=== PATIENT | female | born 1955 | race Hispanic/Latino ===

== ENCOUNTER 2017-01-25 09:02 | Outpatient (CLI) | payer BC ==
--- NOTE | 2017-01-25 11:03 | Mammography Report ---
Bilateral digital screening mammogram with CAD. Comparison study is dated January 26, 2016. Findings: On the MLO projection of the right breast there is an ill-defined subcentimeter parenchymal asymmetry above the nipple line. Otherwise, the overall clinical pattern is stable with no additional suspicious findings. A left biopsy clip is noted. There are no suspicious microcalcifications. Impression: Small right parenchymal asymmetry. BI-RADS code: Zero. Recommendation: Spot compression, 90 degree view, and ultrasound if needed.
== END 2017-01-25 09:03 | disposition home or self-care (01) ==
LOC: MAMMO 09:02
DX: Z12.31 Encounter for screening mammogram for malignant neoplasm of breast (principal)
CPT/HCPCS: 77067; G0202

== ENCOUNTER 2017-01-28 07:27 | Outpatient (CLI) | payer BC ==
--- NOTE | 2017-01-28 07:58 | Mammography Report ---
Right mammogram: Additional lateral compression imaging is performed based on questionable new asymmetry on recent screening exam of January 28. The asymmetry identified at that time is no longer noted. No additional changes. Impression: Stable right mammogram. Recommendation: Annual mammogram followup. BI-RADS CATEGORY: 1 = Negative ACR BI-RADS MAMMOGRAPHIC CODES: 0 = Needs additional imaging evaluation; 1 = Negative; 2 = Benign; 3 = Probably benign; 4 = Suspicious; 5 = Malignant; 6 = Known biopsy-proven malignancy COMMENT: 1. Dense breast tissue, i.e., adenosis, fibrocystic changes, etc., may obscure an underlying neoplasm. 2. Approximately 10% of cancers are not detected with mammography. 3. A negative mammography report should not delay biopsy if a clinically suspicious mass is present.
== END 2017-01-28 07:28 | disposition home or self-care (01) ==
LOC: MAMMO 07:27
DX: R92.8 Other abnormal and inconclusive findings on diagnostic imaging of breast (principal)
CPT/HCPCS: G0206-RT

== ENCOUNTER 2017-03-17 08:31 | Outpatient (CLI) | payer BC ==
[2017-03-17 09:00] LABS: Basophils % (Auto) 0.6 % (0.0-1.8); Eosinophils % (Auto) 2.6 % (0.0-4.3); Hematocrit 43.1 % (30.3-42.9); Hemoglobin 14.6 gm/dl (10.1-14.3); Mean Corpuscular HGB Conc 34 % (30-34); Mean Corpuscular Hemoglobin 30 pg (28-32); Mean Corpuscular Volume 89 fl (79-97); Platelet Count 177 K/mm3 (140-440); Red Blood Count 4.86 M/mm3 (3.65-5.03); Red Cell Distribution Width 13.5 % (13.2-15.2); White Blood Count 8.7 K/mm3 (4.5-11.0)
[2017-03-17 09:21] LABS: Alanine Aminotransferase 16 units/L (7-56); Albumin/Globulin Ratio 1.5 %; Alkaline Phosphatase 72 units/L (35-129); Anion Gap 15 mmol/L; BUN/Creatinine Ratio 18.33; Blood Urea Nitrogen 11 mg/dL (7-17); Carbon Dioxide 25 mmol/L (22-30); Chloride 104.4 mmol/L (98-107); Cholesterol 211 mg/dL (50-199); Glucose 86 mg/dL (65-100); HDL Cholesterol 53 mg/dL (40-59); LDL Cholesterol,Direct 139 mg/dL (50-130); Potassium 3.8 mmol/L (3.6-5.0); Sodium 141 mmol/L (137-145); Total Protein 6.6 g/dL (6.3-8.2); Triglycerides 98 mg/dL (2-149)
[2017-03-19 07:43] LABS: Vitamin D, 25-OH, Total 43 ng/mL (30-100)
== END 2017-03-17 08:32 | disposition home or self-care (01) ==
LOC: LAB 08:31
PROVIDERS: ATTEND Family Medicine
DX: Z13.220 Encounter for screening for lipoid disorders (principal); E01.0 Iodine-deficiency related diffuse (endemic) goiter; E55.9 Vitamin D deficiency, unspecified; D50.8 Other iron deficiency anemias; Z79.899 Other long term (current) drug therapy
CPT/HCPCS: 36415; 80053; 80061; 82306; 84439; 84443; 85025

== ENCOUNTER 2018-03-03 07:22 | Outpatient (CLI) | payer BC ==
[2018-03-03 07:55] LABS: Basophils % (Auto) 0.6 % (0.0-1.8); Eosinophils # (Auto) 0.2 K/mm3 (0.0-0.4); Eosinophils % (Auto) 2.7 % (0.0-4.3); Hematocrit 44.2 % (30.3-42.9); Hemoglobin 14.9 gm/dl (10.1-14.3); Lymphocytes # (Auto) 2.6 K/mm3 (1.2-5.4); Lymphocytes % (Auto) 39.4 % (13.4-35.0); Mean Corpuscular HGB Conc 34 % (30-34); Mean Corpuscular Hemoglobin 30 pg (28-32); Mean Corpuscular Volume 89 fl (79-97); Monocytes # (Auto) 0.3 K/mm3 (0.0-0.8); Monocytes % (Auto) 4.8 % (0.0-7.3); Platelet Count 195 K/mm3 (140-440); Red Blood Count 4.94 M/mm3 (3.65-5.03); Red Cell Distribution Width 13.6 % (13.2-15.2)
[2018-03-03 08:07] LABS: Alanine Aminotransferase 17 units/L (7-56); Albumin 4.2 g/dL (3.9-5); BUN/Creatinine Ratio 24; Blood Urea Nitrogen 12 mg/dL (7-17); Calcium 9.2 mg/dL (8.4-10.2); Chol/HDL Ratio 4.91 %; HDL Cholesterol 45 mg/dL (40-59); Hemolysis Index 3; LDL Cholesterol,Direct 176 mg/dL (50-130)
[2018-03-03 08:33] LABS: Free T4 (Free Thyroxine) 1.01 ng/dL (0.76-1.46)
== END 2018-03-03 07:23 | disposition home or self-care (01) ==
LOC: LAB 07:22
PROVIDERS: ATTEND Family Medicine
DX: E55.9 Vitamin D deficiency, unspecified (principal); E04.2 Nontoxic multinodular goiter; E78.01 Familial hypercholesterolemia
CPT/HCPCS: 36415; 80053; 80061; 82306; 84439; 84443; 85025

== ENCOUNTER 2018-04-11 14:19 | Outpatient (CLI) | payer BC ==
--- NOTE | 2018-04-11 16:45 | Mammography Report ---
BONE DEXA:04/11/18 14:19:00 CLINICAL: Postmenopausal. No comparison. TECHNIQUE: Two site bone DEXA performed on an Hologic scanner. FINDINGS: The average BMD of the lumbar spine L1-L4 is 0.996g/cm squared with a T-score of -0.5 and a Z-score of +1.1. The average BMD of the left hip is 0.851g/cm squared with a T-score of -0.7 and a Z-score of +0.3. The left from a neck BMD is 0.684g/cm squared with a T score of -1.5 and a Z score of -0.1 IMPRESSION: 1. WHO classification: Normal with average fracture risk based on lumbar spine measurements. 2. WHO classification: Osteopenia with increased fracture risk based on left femoral neck measurements. RECOMMENDATION: Clinical correlation and routine screening. DEFINITIONS: BMD = Bone Mineral Density T-score = BMD related to mean peak bone mass of young adult (mean expressed in Standard Deviation) Z-score = Age matched BMD expressed in SD World Health Organization (WHO) Diagnostic Criteria Normal T-score > -1 SD Osteopenia T-score between -1 and -2.4 SD Osteoporosis T-score -2.5 SD or below NOTE: BMD is not the only risk factor for fracture. One should also consider factors such as the patient's age, risk of falling, previous osteoporotic fracture, family history of osteoporotic fractures, current smoker, and low body weight. Z-scores are not calculated if >80 years of age.
--- NOTE | 2018-04-12 09:53 | Mammography Report ---
BILATERAL DIGITAL SCREENING MAMMOGRAM and DIGITAL BREAST TOMOSYNTHESIS (DBT) : 04/11/18 CLINICAL: Routine screening. COMPARISON:01/25/17 and 01/26/16 FINDINGS: The breasts are heterogeneously dense, which may obscure small masses.A left outer biopsy clip. No new mass, architectural distortion or suspicious calcifications. IMPRESSION: No mammographic evidence of malignancy. BI-RADS CATEGORY: 2 - - Benign RECOMMENDATION: Routine mammographic screening in one year. COMMENT: Patient follow-up letters are generated by our [email or web address] application.
== END 2018-04-11 14:20 | disposition home or self-care (01) ==
LOC: SPVWC 14:19
DX: Z13.820 Encounter for screening for osteoporosis (principal); Z12.31 Encounter for screening mammogram for malignant neoplasm of breast; M85.88 Other specified disorders of bone density and structure, other site; Z88.5 Allergy status to narcotic agent
CPT/HCPCS: 77063; 77067; 77080

== ENCOUNTER 2019-05-04 11:10 | Outpatient (CLI) | payer OTHER ==
--- NOTE | 2019-05-07 16:10 | Mammography Report ---
DIGITAL SCREENING MAMMOGRAM WITH CAD, 05/04/2019 INDICATION: Routine screening mammography. TECHNIQUE: Digital bilateral 2D mammography was obtained in the craniocaudal and mediolateral obliq ue projections. This examination was interpreted with the benefit of Computer-Aided Detection analysi s. COMPARISON: 04/11/2018 FINDINGS: Breast Density: The breasts are heterogeneously dense, which may obscure small masses. A partially circumscribed left upper outer mass with calcifications is larger compared to previous ex ams. A left upper outer biopsy clip. There is no evidence of dominant mass, suspicious calcifications or architectural distortion in the right breast. IMPRESSION: Left upper outer mass requiring additional imaging. Recommend recall for left spot magnif ication views and targeted left breast ultrasound. Follow up recommendation: Special View: Mag Category 0: Incomplete. Needs additional imaging evaluation and/or prior mammograms for comparison. A "normal" or negative report should not discourage follow up or biopsy of a clinically significant f inding. A written summary of these findings will be mailed to the patient. The patient will be entered into a mammography reporting system which will generate a reminder letter for the patient's next appointmen t at the appropriate interval. The [employer] recommends yearly mammograms starting at age 40 and continuing as l huseyin as a woman is in good health. Breast MRI is recommended for women with an approximate 20-25% or greater lifetime risk of breast cancer, including women with a strong family history of breast or ova yumiko cancer or who have been treated for Hodgkin's disease. Signer Name: Jose Salazar MD Signed: 05/07/2019 4:05 PM Workstation Name: [id number]
== END 2019-05-04 11:11 | disposition home or self-care (01) ==
LOC: SPVWC 11:10
DX: Z12.31 Encounter for screening mammogram for malignant neoplasm of breast (principal)
CPT/HCPCS: 77067

== ENCOUNTER 2020-04-28 10:38 | Outpatient (CLI) | payer OTHER ==
--- NOTE | 2020-04-29 09:56 | Mammography Report ---
DIGITAL SCREENING MAMMOGRAM WITH CAD, 04/28/2020 INDICATION: Routine screening mammography. TECHNIQUE: Digital bilateral 2D mammography was obtained in the craniocaudal and mediolateral obliq ue projections. This examination was interpreted with the benefit of Computer-Aided Detection analysi s. COMPARISON: 05/23/2019, 05/04/2019, 04/11/2018, 01/28/2017, 01/25/2017, 02/03/2016, 01/26/2016 FINDINGS: Breast Density: The breasts are heterogeneously dense, which may obscure small masses. There is no evidence of dominant mass, suspicious calcifications or architectural distortion in eithe r breast. Nodularity in the left breast is unchanged when compared to multiple prior studies. There i s a biopsy clip in the upper outer left breast. IMPRESSION: Follow up recommendation: Routine yearly BI-RADS Category 2: Benign. A "normal" or negative report should not discourage follow up or biopsy of a clinically significant f inding. A written summary of these findings will be mailed to the patient. The patient will be entered into a mammography reporting system which will generate a reminder letter for the patient's next appointmen t at the appropriate interval. The [employer] recommends yearly mammograms starting at age 40 and continuing as l huseyin as a woman is in good health. Breast MRI is recommended for women with an approximate 20-25% or greater lifetime risk of breast cancer, including women with a strong family history of breast or ova yumiko cancer or who have been treated for Hodgkin's disease. Signer Name: Iliana Wallis MD Signed: 04/29/2020 8:22 AM Workstation Name: [id number]
== END 2020-04-28 10:39 | disposition home or self-care (01) ==
LOC: SPVWC 10:38
PROVIDERS: ATTEND Family Medicine
DX: Z12.31 Encounter for screening mammogram for malignant neoplasm of breast (principal); N64.89 Other specified disorders of breast
CPT/HCPCS: 77067